=== PATIENT | female | born 1935 | race Two or more races ===

== ENCOUNTER 2022-03-13 11:22 | Emergency (ER) | payer MEDICARE ==
[~2022-03-13] VITALS: Ht 160 cm; Wt 45.0 kg
[2022-03-13 11:26] VITALS: BP 158/79
[2022-03-13] MEDS ORDERED: DOCU-286 MT (15:15)
[2022-03-13] MEDS ORDERED: HYDR30CR80 TP (15:15)
== END 2022-03-13 15:40 | disposition home or self-care (01) ==
LOC: ER 11:22
DX: K64.4 Residual hemorrhoidal skin tags (principal)
CPT/HCPCS: 99283

== ENCOUNTER 2022-06-08 20:29 | Inpatient (IN) | payer MEDICARE, MEDICAID ==
[~2022-06-08] VITALS: Ht 160 cm; Wt 34.7 kg
[~2022-06-08 20:29] MED LIST: DOCU-286 MT; HYDR30CR80 TP
[2022-06-09] VITALS (16 sets, daily range): BP systolic 87–132; BP diastolic 51–98
[2022-06-09] MEDS ORDERED: ONDANSETRON HCL 4MG/2ML INJ IV STA (00:36)
[2022-06-09] MEDS ORDERED: MORPHINE SULFATE 4 MG/ML CPJ (NOT FOR IM USE) IV ONE (01:30)
[2022-06-09 02:13] LABS: HEMATOCRIT. 36.2 % (36.0-48.0); HEMOGLOBIN. 12.2 g/dL (12.0-16.0); MEAN CORPUSCULAR HEMOGLOBIN 31.5 pg (28.0-32.0); MEAN CORPUSCULAR VOLUME 93.2 fL (81.0-99.0); MEAN PLATELET VOLUME 6.7 fl (7.4-10.4); PLATELET 189 x1000/uL (130-400); RED BLOOD CELL COUNT 3.88 mill/uL (4.2-5.4); RED CELL DISTRIBUTION WIDTH 14.1 % (11.6-14.6)
[2022-06-09 02:17] LABS: PLATELET ESTIMATE NORMAL
[2022-06-09 02:27] LABS: PROTHROMBIN TIME 10.6 sec (9.6-11.0)
[2022-06-09 03:06] LABS: CHLORIDE 98 mEq/L (98-107)
[2022-06-09] MEDS ORDERED: GUAIFENESIN 200MG/10ML SUGAR FREE UDC PO PRN (03:30)
[2022-06-09] MEDS ORDERED: DOCUSATE SODIUM 100MG CAPSULE PO PRN (03:30)
[2022-06-09] MEDS ORDERED: MORPHINE SULFATE 2 MG/ML CPJ (NOT FOR IM USE) IV PRN (03:30)
[2022-06-09] MEDS ORDERED: IPRATROPIUM/ALBUTEROL 0.5-3(2.5)MG/3ML NEB HHN PRN (03:30)
[2022-06-09] MEDS ORDERED: ONDANSETRON HCL 4MG/2ML INJ IV PRN ×2 (03:30→07:30)
[2022-06-09] MEDS ORDERED: SODIUM CHLORIDE 0.9% 1,000 ML IV SCH (03:30)
[2022-06-09] MEDS ORDERED: ACETAMINOPHEN 325MG TABLET PO PRN (03:30)
[2022-06-09] MEDS ORDERED: CLONIDINE 0.1MG TABLET PO PRN (03:30)
[2022-06-09] MEDS ORDERED: DIATR MEGLU/DIATRIZOATE SOLN 120ML ONE (04:06)
[2022-06-09 05:44] LABS: VITAMIN B12 SERUM 415 pg/mL (211-911)
[2022-06-09] MEDS ORDERED: BUPIVACAINE HCL/PF 0.5% (5MG/ML) 30ML ONE (06:56)
[2022-06-09] MEDS ORDERED: SKIN ADHESIVE 0.7 GM EA TOP ONE (06:56)
[2022-06-09] MEDS ORDERED: ETOMIDATE 2MG/ML 10ML VIAL IV ONE (07:09)
[2022-06-09] MEDS ORDERED: DEXAMETHASONE 4MG/ML 1ML VIAL ONE (07:15)
[2022-06-09] MEDS ORDERED: LIDOCAINE HCL 1% 10 MG/ML 10ML VIAL ONE (07:15)
[2022-06-09] MEDS ORDERED: PHENYLEPHRINE HCL 10 MG/ML 1ML (IV VIAL) IV ONE (07:15)
[2022-06-09] MEDS ORDERED: ONDANSETRON HCL 4MG/2ML INJ ONE (07:15)
[2022-06-09] MEDS ORDERED: SUCCINYLCHOLINE CHLORIDE 200MG/10ML IV ONE (07:16)
[2022-06-09] MEDS ORDERED: ROCURONIUM BROMIDE 10MG/ML VIAL 5ML IV ONE (07:16)
[2022-06-09] MEDS ORDERED: GLYCOPYRROLATE 0.2 MG/ML 2ML VIAL ONE (07:17)
[2022-06-09] MEDS ORDERED: DEXT 5%/0.45% NACL KCL 20MEQ/L 1,000 ML IV SCH (08:00)
[2022-06-09] MEDS ORDERED: FENTANYL CITRATE/PF 50MCG/ML 2ML VIAL ONE (08:05)
[2022-06-09] MEDS ORDERED: ALBUMIN HUMAN 12.5GM/50ML (25%) IV ONE (08:36)
[2022-06-09] MEDS: PANTOPRAZOLE SODIUM 40 MG/VIAL IV SCH (09:00)
[2022-06-09 10:44] LABS: BG BASE EXCESS -8.9 mmol/L (-2.0-2.0); BG CARBOXYHEMOGLOBIN 0.6 % (0.5-1.5); BG FRACTION INSPIRED OXYGEN 50; BG HCO3 ACT 16.2 mmol/L (22.0-26.0); BG METHEMOGLOBIN 0.3 % (0.0-1.5); BG OXYHEMOGLOBIN 95.1 % (94.0-97.0); BG PCO2 32.6 mmHg (35.0-45.0); BG PH 7.315 (7.350-7.450); BG PO2 88.5 mmHg (75.0-100.0); BG SAMPLE SITE RIGHT BRACHIAL; BG TOTAL HEMOGLOBIN 12.5 g/dL (12.0-18.0); BG VENT MODE VENT - AC
[2022-06-09] MEDS ORDERED: SODIUM BICARBONATE 8.4% 1 MEQ/ML 50ML SYR IV NR ×2 (11:15→12:30)
[2022-06-09] MEDS ORDERED: FENTANYL CITRATE/PF 50MCG/ML 2ML VIAL IV PRN (11:45)
[2022-06-09] MEDS ORDERED: HYDROMORPHONE HCL/PF 2MG/ML CPJ IV PRN (11:45)
[2022-06-09 12:08] LABS: BG BASE EXCESS -5.1 mmol/L (-2.0-2.0); BG CARBOXYHEMOGLOBIN 0.9 % (0.5-1.5); BG DEOXYHEMOGLOBIN 1.2 % (0.0-5.0); BG FRACTION INSPIRED OXYGEN 70; BG HCO3 ACT 18.8 mmol/L (22.0-26.0); BG OXYGEN SATURATION 98.8 % (92.0-98.5); BG OXYHEMOGLOBIN 97.9 % (94.0-97.0); BG PCO2 31.3 mmHg (35.0-45.0); BG PH 7.396 (7.350-7.450); BG PO2 160.2 mmHg (75.0-100.0); BG SAMPLE SITE RIGHT BRACHIAL; BG TOTAL HEMOGLOBIN 11.7 g/dL (12.0-18.0); BG VENT MODE VENT - AC
[2022-06-09] MEDS ORDERED: DEXT 5%/0.9% NACL 500 ML IV SCH (14:15)
[2022-06-09 14:26] LABS: FOLIC ACID (FOLATE) SERUM > 20.00 ng/mL (>5.38)
[2022-06-09] MEDS ORDERED: PIPERACILLIN/TAZOBACTAM 3.375G in DEXT 5% WATER 50ML IV SCH (14:30)
[2022-06-09] MEDS ORDERED: PROPOFOL 10MG/ML 100ML 100 ML IV PRN (14:30)
[2022-06-09] MEDS: DEXT 5%/0.9% NACL 1,000 ML IV SCH ×2 (14:30→16:50)
[2022-06-09] MEDS ORDERED: DEXTROSE 50% WATER 50ML SYRINGE IV PRN (14:30)
[2022-06-09] MEDS ORDERED: FENTANYL 2500MCG/250ML PMX 250 ML IV PRN (14:30)
[2022-06-09 14:38] LABS: BG BASE EXCESS -0.5 mmol/L (-2.0-2.0); BG CARBOXYHEMOGLOBIN 0.8 % (0.5-1.5); BG DEOXYHEMOGLOBIN 0.8 % (0.0-5.0); BG FRACTION INSPIRED OXYGEN 60; BG HCO3 ACT 22.5 mmol/L (22.0-26.0); BG METHEMOGLOBIN 0.1 % (0.0-1.5); BG OXYGEN SATURATION 99.2 % (92.0-98.5); BG OXYHEMOGLOBIN 98.3 % (94.0-97.0); BG PCO2 31.9 mmHg (35.0-45.0); BG PH 7.467 (7.350-7.450); BG PO2 212.7 mmHg (75.0-100.0); BG SAMPLE SITE RIGHT BRACHIAL; BG TOTAL HEMOGLOBIN 11.7 g/dL (12.0-18.0); BG VENT MODE VENT - AC
[2022-06-09] MEDS: MORPHINE SULFATE 4 MG/ML CPJ (NOT FOR IM USE) IV PRN ×2 (16:15→19:46)
[2022-06-09] MEDS: BLOOD SUGAR DIAGNOSTIC STRIP TEST SCH ×2 (16:45→21:00)
[2022-06-09] MEDS: INSULIN LISPRO 100 UNITS/ML SUBCUT SCH ×2 (16:48→21:00)
[2022-06-09] MEDS ORDERED: PIPERACILLIN/TAZ 3.375G PREMIX 50 ML IV SCH (22:00)
[2022-06-09] MEDS: PIPERACILLIN/TAZOBACTAM 3.375G in DEXT 5% WATER 50ML IV SCH (23:48)
[2022-06-10] VITALS (58 sets, daily range): BP systolic 99–149; BP diastolic 54–105
[2022-06-10 05:02] LABS: HEMATOCRIT. 31.6 % (36.0-48.0); HEMOGLOBIN. 10.6 g/dL (12.0-16.0); MEAN CORPUSCULAR HEMOGLOBIN 31.4 pg (28.0-32.0); MEAN CORPUSCULAR VOLUME 93.9 fL (81.0-99.0); MEAN PLATELET VOLUME 7.5 fl (7.4-10.4); PLATELET 160 x1000/uL (130-400); RED BLOOD CELL COUNT 3.36 mill/uL (4.2-5.4); RED CELL DISTRIBUTION WIDTH 14.3 % (11.6-14.6)
[2022-06-10 05:10] LABS: CHLORIDE 99 mEq/L (98-107)
[2022-06-10 05:36] LABS: HDL CHOLESTEROL 83 mg/dL (40-59); LDL CHOLESTEROL 26 mg/dL (5-100); T4 FREE 1.24 ng/dL (0.76-1.46)
[2022-06-10] MEDS: PIPERACILLIN/TAZOBACTAM 3.375G in DEXT 5% WATER 50ML IV SCH ×3 (05:59→22:25)
[2022-06-10] MEDS: INSULIN LISPRO 100 UNITS/ML SUBCUT SCH ×4 (06:15→21:00)
[2022-06-10] MEDS: BLOOD SUGAR DIAGNOSTIC STRIP TEST SCH ×4 (06:15→21:50)
[2022-06-10 08:32] LABS: BG BASE EXCESS -1.9 mmol/L (-2.0-2.0); BG CARBOXYHEMOGLOBIN 0.3 % (0.5-1.5); BG DEOXYHEMOGLOBIN 1.1 % (0.0-5.0); BG HCO3 ACT 20.9 mmol/L (22.0-26.0); BG METHEMOGLOBIN 0.3 % (0.0-1.5); BG OXYGEN SATURATION 98.9 % (92.0-98.5); BG OXYHEMOGLOBIN 98.3 % (94.0-97.0); BG PCO2 29.3 mmHg (35.0-45.0); BG PH 7.472 (7.350-7.450); BG PO2 163.7 mmHg (75.0-100.0); BG SAMPLE SITE RIGHT BRACHIAL; BG TOTAL HEMOGLOBIN 10.7 g/dL (12.0-18.0); BG VENT MODE VENT - AC
[2022-06-10] MEDS: PANTOPRAZOLE SODIUM 40 MG/VIAL IV SCH (08:51)
[2022-06-10 10:39] LABS: PLATELET ESTIMATE NORMAL
[2022-06-10] MEDS: MORPHINE SULFATE 2 MG/ML CPJ (NOT FOR IM USE) IV PRN (10:42)
[2022-06-10] MEDS ORDERED: NALOXONE HCL 0.4MG/ML VIAL IV PRN (10:45)
[2022-06-10] MEDS: MORPHINE SULFATE 4 MG/ML CPJ (NOT FOR IM USE) IV PRN ×2 (11:58→23:07)
[2022-06-10 12:47] LABS: BG BASE EXCESS 0.6 mmol/L (-2.0-2.0); BG CARBOXYHEMOGLOBIN 0.3 % (0.5-1.5); BG DEOXYHEMOGLOBIN 1.7 % (0.0-5.0); BG FRACTION INSPIRED OXYGEN 30; BG HCO3 ACT 24.7 mmol/L (22.0-26.0); BG OXYGEN SATURATION 98.3 % (92.0-98.5); BG PCO2 37.7 mmHg (35.0-45.0); BG PH 7.435 (7.350-7.450); BG PO2 131.6 mmHg (75.0-100.0); BG SAMPLE SITE RIGHT BRACHIAL; BG TOTAL HEMOGLOBIN 10.5 g/dL (12.0-18.0); BG VENT MODE VENT - CPAP
[2022-06-10] MEDS: DEXT 5%/0.9% NACL 1,000 ML IV SCH (16:17)
[2022-06-11] VITALS (48 sets, daily range): BP systolic 131–189; BP diastolic 54–124
[2022-06-11 05:13] LABS: HEMATOCRIT. 29.5 % (36.0-48.0); MEAN CORPUSCULAR HEMOGLOBIN 31.4 pg (28.0-32.0); MEAN CORPUSCULAR VOLUME 93.1 fL (81.0-99.0); MEAN PLATELET VOLUME 7.6 fl (7.4-10.4); PLATELET 143 x1000/uL (130-400); RED BLOOD CELL COUNT 3.17 mill/uL (4.2-5.4); RED CELL DISTRIBUTION WIDTH 14.2 % (11.6-14.6)
[2022-06-11 05:32] LABS: CHLORIDE 104 mEq/L (98-107)
[2022-06-11] MEDS: PIPERACILLIN/TAZOBACTAM 3.375G in DEXT 5% WATER 50ML IV SCH ×3 (05:35→22:47)
[2022-06-11] MEDS: BLOOD SUGAR DIAGNOSTIC STRIP TEST SCH ×4 (06:28→21:55)
[2022-06-11] MEDS: INSULIN LISPRO 100 UNITS/ML SUBCUT SCH ×4 (06:28→21:00)
[2022-06-11] MEDS ORDERED: AMLODIPINE 2.5MG TABLET PO SCH (09:00)
[2022-06-11 09:51] LABS: PLATELET ESTIMATE NORMAL
[2022-06-11] MEDS: PANTOPRAZOLE SODIUM 40 MG/VIAL IV SCH (10:17)
[2022-06-11] MEDS: MORPHINE SULFATE 2 MG/ML CPJ (NOT FOR IM USE) IV PRN (15:55)
[2022-06-11] MEDS ORDERED: CLONIDINE 0.1MG TABLET PO PRN (16:00)
[2022-06-11] MEDS: DEXT 5%/0.9% NACL 1,000 ML IV SCH (19:50)
[2022-06-12] VITALS (29 sets, daily range): BP systolic 113–171; BP diastolic 52–103
[2022-06-12] MEDS: INSULIN LISPRO 100 UNITS/ML SUBCUT SCH ×4 (06:29→21:00)
[2022-06-12] MEDS: BLOOD SUGAR DIAGNOSTIC STRIP TEST SCH ×4 (06:29→21:19)
[2022-06-12] MEDS: PIPERACILLIN/TAZOBACTAM 3.375G in DEXT 5% WATER 50ML IV SCH ×3 (06:35→21:40)
[2022-06-12] MEDS: PANTOPRAZOLE SODIUM 40 MG/VIAL IV SCH (08:29)
[2022-06-12] MEDS: AMLODIPINE 10MG TABLET PO SCH (08:29)
[2022-06-12] MEDS: DEXT 5%/0.9% NACL 1,000 ML IV SCH ×2 (08:29→21:41)
[2022-06-12] MEDS: METOPROLOL TARTRATE 25MG TABLET PO SCH ×2 (09:10→21:40)
[2022-06-12] MEDS: MORPHINE SULFATE 2 MG/ML CPJ (NOT FOR IM USE) IV PRN ×2 (09:11→14:38)
[2022-06-12] MEDS ORDERED: ALBUTEROL (0.083%) 2.5MG/3ML NEB HHN PRN (11:15)
[2022-06-12] MEDS ORDERED: IPRATROPIUM BROMIDE (0.02%) 0.5MG/2.5ML NEB HHN PRN (11:15)
[2022-06-13] VITALS: BP 123/66
[2022-06-13 04:00] VITALS: BP 125/62
[2022-06-13] MEDS: BLOOD SUGAR DIAGNOSTIC STRIP TEST SCH ×4 (06:14→21:38)
[2022-06-13] MEDS: PIPERACILLIN/TAZOBACTAM 3.375G in DEXT 5% WATER 50ML IV SCH ×3 (06:16→21:56)
[2022-06-13 08:00] VITALS: BP 126/75
[2022-06-13] MEDS: INSULIN LISPRO 100 UNITS/ML SUBCUT SCH ×4 (08:10→21:00)
[2022-06-13] MEDS: METOPROLOL TARTRATE 25MG TABLET PO SCH ×2 (08:31→21:57)
[2022-06-13] MEDS: PANTOPRAZOLE SODIUM 40 MG/VIAL IV SCH (08:31)
[2022-06-13] MEDS: AMLODIPINE 10MG TABLET PO SCH (08:31)
[2022-06-13] MEDS: ACETAMINOPHEN 325MG TABLET PO PRN (08:33)
[2022-06-13 08:59] LABS: HEMATOCRIT 28.5 % (36.0-48.0); HEMOGLOBIN 9.5 g/dL (12.0-16.0); MEAN CORPUSCULAR HEMOGLOBIN 31.3 pg (28.0-32.0); MEAN CORPUSCULAR VOLUME 93.7 fL (81.0-99.0); PLATELET 158 x1000/uL (130-400); RED BLOOD CELL COUNT 3.04 mill/uL (4.2-5.4); RED CELL DISTRIBUTION WIDTH 13.8 % (11.6-14.6)
[2022-06-13 09:10] LABS: CHLORIDE 108 mEq/L (98-107)
[2022-06-13] MEDS ORDERED: POTASSIUM CHLORIDE INJ 40 MEQ in DEXT 5% WATER 250 ML IV ONE (11:30)
[2022-06-13 12:00] VITALS: BP_SYST 122; BP_DIAS 63; BP_DIAS 65
[2022-06-13] MEDS: MORPHINE SULFATE 2 MG/ML CPJ (NOT FOR IM USE) IV PRN ×2 (12:15→17:39)
[2022-06-13] MEDS: SODIUM CHLORIDE 0.9% 1,000 ML IV SCH (12:29)
[2022-06-13] MEDS: KCL 20MEQ/100ML X 2 FOR TOTAL KCL 40MEQ/200ML IV SCH ×2 (15:23→15:52)
[2022-06-13 16:00] VITALS: BP_SYST 126; BP_DIAS 71; BP_DIAS 72
[2022-06-13 20:00] VITALS: BP 135/66
[2022-06-14] VITALS: BP 140/71
[2022-06-14 04:00] VITALS: BP 144/76
[2022-06-14] MEDS: SODIUM CHLORIDE 0.9% 1,000 ML IV SCH (05:23)
[2022-06-14] MEDS: MORPHINE SULFATE 2 MG/ML CPJ (NOT FOR IM USE) IV PRN (05:24)
[2022-06-14] MEDS: PIPERACILLIN/TAZOBACTAM 3.375G in DEXT 5% WATER 50ML IV SCH ×3 (05:24→20:59)
[2022-06-14 07:23] LABS: HEMATOCRIT. 29.3 % (36.0-48.0); HEMOGLOBIN. 9.9 g/dL (12.0-16.0); MEAN CORPUSCULAR HEMOGLOBIN 31.9 pg (28.0-32.0); MEAN CORPUSCULAR VOLUME 94.1 fL (81.0-99.0); MEAN PLATELET VOLUME 7.6 fl (7.4-10.4); PLATELET 172 x1000/uL (130-400); RED BLOOD CELL COUNT 3.12 mill/uL (4.2-5.4)
[2022-06-14 07:33] LABS: CHLORIDE 104 mEq/L (98-107)
[2022-06-14] MEDS: BLOOD SUGAR DIAGNOSTIC STRIP TEST SCH ×4 (07:40→20:59)
[2022-06-14 08:01] VITALS: BP 128/65
[2022-06-14] MEDS: INSULIN LISPRO 100 UNITS/ML SUBCUT SCH ×4 (08:10→20:59)
[2022-06-14] MEDS: AMLODIPINE 10MG TABLET PO SCH (08:12)
[2022-06-14] MEDS: METOPROLOL TARTRATE 25MG TABLET PO SCH ×2 (08:12→20:58)
[2022-06-14] MEDS: PANTOPRAZOLE SODIUM 40 MG/VIAL IV SCH (08:12)
[2022-06-14 09:46] LABS: PLATELET ESTIMATE NORMAL
[2022-06-14] MEDS: DEXT 5%/0.9% NACL 1,000 ML IV SCH ×2 (10:24→22:23)
[2022-06-14] MEDS: ACETAMINOPHEN 325MG TABLET PO PRN ×2 (10:28→18:51)
[2022-06-14] MEDS ORDERED: POTASSIUM CHLORIDE INJ 40 MEQ in DEXT 5% WATER 500 ML IV NR (11:00)
[2022-06-14 11:57] VITALS: BP 108/55
[2022-06-14 15:31] VITALS: BP 122/61
[2022-06-14 20:00] VITALS: BP 130/86
[2022-06-15] VITALS: BP 123/72
[2022-06-15 04:00] VITALS: BP 124/63
[2022-06-15 07:22] LABS: HEMOGLOBIN. 9.5 g/dL (12.0-16.0); MEAN CORPUSCULAR HEMOGLOBIN 31.4 pg (28.0-32.0); MEAN CORPUSCULAR VOLUME 92.8 fL (81.0-99.0); MEAN PLATELET VOLUME 7.6 fl (7.4-10.4); PLATELET 191 x1000/uL (130-400); RED BLOOD CELL COUNT 3.01 mill/uL (4.2-5.4); RED CELL DISTRIBUTION WIDTH 13.9 % (11.6-14.6)
[2022-06-15] MEDS: INSULIN LISPRO 100 UNITS/ML SUBCUT SCH ×4 (07:27→21:00)
[2022-06-15] MEDS: BLOOD SUGAR DIAGNOSTIC STRIP TEST SCH ×4 (07:27→21:00)
[2022-06-15 07:55] VITALS: BP 127/61
[2022-06-15 08:07] LABS: CHLORIDE 108 mEq/L (98-107)
[2022-06-15] MEDS: METOPROLOL TARTRATE 25MG TABLET PO SCH ×2 (09:06→20:55)
[2022-06-15] MEDS: AMLODIPINE 10MG TABLET PO SCH (09:06)
[2022-06-15] MEDS: PANTOPRAZOLE SODIUM 40 MG/VIAL IV SCH (09:06)
[2022-06-15] MEDS: DEXT 5%/0.9% NACL 1,000 ML IV SCH (12:07)
[2022-06-15 12:43] VITALS: BP 112/65
[2022-06-15] MEDS: ACETAMINOPHEN 325MG TABLET PO PRN (16:03)
[2022-06-15 16:28] VITALS: BP 127/56
[2022-06-15 20:13] VITALS: BP 122/63
[2022-06-15 22:40] LABS: PLATELET ESTIMATE NORMAL
[2022-06-16 00:23] VITALS: BP 115/65
[2022-06-16] MEDS: DEXT 5%/0.9% NACL 1,000 ML IV SCH ×2 (01:21→15:05)
[2022-06-16] MEDS: ACETAMINOPHEN 325MG TABLET PO PRN (01:38)
[2022-06-16 04:00] VITALS: BP 128/51
[2022-06-16] MEDS: BLOOD SUGAR DIAGNOSTIC STRIP TEST SCH ×2 (07:23→12:45)
[2022-06-16] MEDS: INSULIN LISPRO 100 UNITS/ML SUBCUT SCH ×2 (07:23→12:46)
[2022-06-16] MEDS ORDERED: HYDROCODONE/ACETAMINOPHEN 5/325MG TABLET PO PRN (07:30)
[2022-06-16] MEDS ORDERED: NALOXONE HCL 0.4MG/ML VIAL IV PRN (07:45)
[2022-06-16 08:00] VITALS: BP 121/58
[2022-06-16] MEDS: PANTOPRAZOLE SODIUM 40 MG/VIAL IV SCH (09:29)
[2022-06-16] MEDS: AMLODIPINE 10MG TABLET PO SCH (09:30)
[2022-06-16] MEDS: METOPROLOL TARTRATE 25MG TABLET PO SCH (09:31)
[2022-06-16 12:00] VITALS: BP 125/62
[2022-06-16 14:09] VITALS: BP 132/62
[2022-06-16 16:00] VITALS: BP 132/62
== END 2022-06-16 17:45 | DRG 330 ==
LOC: ER 20:29 → EDBEDREQ 06-09 02:27 → EDBEDREQTM 06-09 02:27 → MICUSO 06-09 15:18 → 7WST 06-12 10:59
PROVIDERS: ADMIT Internal Medicine; ATTEND Internal Medicine
PROC: 0DTF0ZZ Resection of Right Large Intestine, Open Approach (ICD-10-PCS; principal; 2022-06-09)
PROC: 5A1935Z Respiratory Ventilation, Less than 24 Consecutive Hours (ICD-10-PCS; 2022-06-09)
PROC: 0BH17EZ Insertion of Endotracheal Airway into Trachea, Via Natural or Artificial Opening (ICD-10-PCS; 2022-06-09)
DX: K56.2 Volvulus (principal); E87.1 Hypo-osmolality and hyponatremia; E87.20 Acidosis, unspecified; J44.9 Chronic obstructive pulmonary disease, unspecified; I10 Essential (primary) hypertension; K21.9 Gastro-esophageal reflux disease without esophagitis; M19.90 Unspecified osteoarthritis, unspecified site; E78.5 Hyperlipidemia, unspecified; R73.9 Hyperglycemia, unspecified; F20.9 Schizophrenia, unspecified; E87.6 Hypokalemia; F32.A Depression, unspecified; E86.1 Hypovolemia; E86.0 Dehydration; K66.8 Other specified disorders of peritoneum; K57.90 Diverticulosis of intestine, part unspecified, without perforation or abscess without bleeding; Z20.822 Contact with and (suspected) exposure to COVID-19; Z90.3 Acquired absence of stomach [part of]; Z79.899 Other long term (current) drug therapy; Z90.710 Acquired absence of both cervix and uterus
CPT/HCPCS: 31500; 36415; 36600; 71045; 74018; 74176; 80048; 80053; 80061; 82375; 82607; 82746; 82805; 82962; 83036; 83880; 83930; 84439; 84443; 84484; 85025; 85027; 87070; 87426; 88307; 94002; 94003; 97162; 97166; 97530; 99285; A6261; C9113; J0330; J1100; J1170; J1815; J2270; J2370; J2405; J2543; J3010; J3480; J3490; J7030; J7042; J7060; P9047; Q9963

== ENCOUNTER 2022-06-28 11:40 | Inpatient (IN) | payer MEDICARE, MEDICAID ==
[~2022-06-28] VITALS: Ht 160 cm; Wt 43.6 kg
[2022-06-28] MEDS ORDERED: MORPHINE SULFATE 2 MG/ML CPJ (NOT FOR IM USE) IV ONE (13:30)
[2022-06-28] MEDS ORDERED: SODIUM CHLORIDE 0.9% 1,000 ML IV ONE (13:30)
[2022-06-28] MEDS ORDERED: ONDANSETRON HCL 4MG/2ML INJ IV ONE (13:30)
[2022-06-28 15:34] LABS: BASOPHILS % 0.2 % (0.0-2.0); EOSINOPHILS % 0.2 % (0.0-5.0); HEMATOCRIT. 36.3 % (36.0-48.0); LYMPHOCYTES % 10.9 % (20.0-50.0); MEAN CORPUSCULAR HEMOGLOBIN 30.5 pg (28.0-32.0); MEAN CORPUSCULAR VOLUME 92.5 fL (81.0-99.0); MONOCYTES % 11.5 % (2.0-8.0); NEUTROPHILS % 77.2 % (40.0-76.0); PLATELET 309 x1000/uL (130-400); RED BLOOD CELL COUNT 3.92 mill/uL (4.2-5.4); RED CELL DISTRIBUTION WIDTH 14.4 % (11.6-14.6)
[2022-06-28 15:42] LABS: CHLORIDE 101 mEq/L (98-107)
[2022-06-28 15:51] LABS: ETHANOL BLOOD < 10 mg/dL
[2022-06-28] MEDS ORDERED: ONDANSETRON HCL 4MG/2ML INJ IV NR (16:00)
[2022-06-28] MEDS ORDERED: MORPHINE SULFATE 2 MG/ML CPJ (NOT FOR IM USE) IV NR (16:00)
[2022-06-28] MEDS ORDERED: CLONIDINE 0.1MG TABLET PO PRN (20:00)
[2022-06-28] MEDS ORDERED: ONDANSETRON HCL 4MG/2ML INJ IV PRN (20:00)
[2022-06-28] MEDS ORDERED: IPRATROPIUM/ALBUTEROL 0.5-3(2.5)MG/3ML NEB NEB PRN (20:00)
[2022-06-28] MEDS ORDERED: ACETAMINOPHEN 650MG SUPP PR PRN ×2 (20:00)
[2022-06-28] MEDS ORDERED: MORPHINE SULFATE 2 MG/ML CPJ (NOT FOR IM USE) IV PRN (20:00)
[2022-06-28] MEDS ORDERED: DEXTROSE 50% WATER 50ML SYRINGE IV PRN (20:15)
[2022-06-28] MEDS ORDERED: NALOXONE HCL 0.4MG/ML VIAL IV PRN (20:30)
[2022-06-28] MEDS: INSULIN LISPRO 100 UNITS/ML SUBCUT SCH (21:00)
[2022-06-28] MEDS: BLOOD SUGAR DIAGNOSTIC STRIP TEST SCH (21:22)
[2022-06-28] MEDS: DEXT 5%/0.9% NACL 1,000 ML IV SCH (21:42)
[2022-06-28 23:03] LABS: PROTHROMBIN TIME 10.8 sec (9.6-11.0)
[2022-06-28 23:08] LABS: PHOSPHORUS 4.8 mg/dL (2.5-4.9)
[2022-06-29] VITALS: BP 100/59
[2022-06-29] MEDS ORDERED: ENOXAPARIN 40MG/0.4ML SYR SUBCUT SCH (02:00)
[2022-06-29 04:00] VITALS: BP 111/59
[2022-06-29] MEDS: DEXT 5%/0.9% NACL 1,000 ML IV SCH (06:03)
[2022-06-29 07:08] LABS: BASOPHILS % 0.3 % (0.0-2.0); EOSINOPHILS % 1.5 % (0.0-5.0); HEMATOCRIT. 30.8 % (36.0-48.0); HEMOGLOBIN. 10.3 g/dL (12.0-16.0); LYMPHOCYTES % 23.8 % (20.0-50.0); MEAN CORPUSCULAR VOLUME 92.9 fL (81.0-99.0); MEAN PLATELET VOLUME 7.6 fl (7.4-10.4); MONOCYTES % 13.7 % (2.0-8.0); NEUTROPHILS % 60.7 % (40.0-76.0); PLATELET 227 x1000/uL (130-400); RED BLOOD CELL COUNT 3.32 mill/uL (4.2-5.4); RED CELL DISTRIBUTION WIDTH 14.1 % (11.6-14.6)
[2022-06-29] MEDS: BLOOD SUGAR DIAGNOSTIC STRIP TEST SCH ×4 (07:20→20:29)
[2022-06-29 07:46] LABS: CHLORIDE 106 mEq/L (98-107)
[2022-06-29] MEDS: INSULIN LISPRO 100 UNITS/ML SUBCUT SCH ×4 (07:50→20:30)
[2022-06-29 08:00] VITALS: BP 115/58
[2022-06-29 08:02] LABS: T4 FREE 1.18 ng/dL (0.76-1.46)
[2022-06-29] MEDS: PANTOPRAZOLE SODIUM 40 MG/VIAL IV SCH (08:16)
[2022-06-29] MEDS ORDERED: IOHEXOL-300 100 ML BOTTLE ONE (09:38)
[2022-06-29] MEDS ORDERED: LIDOCAINE HCL 1% 10 MG/ML 10ML VIAL ONE (13:29)
[2022-06-29 16:20] VITALS: BP 114/60
[2022-06-29 16:34] LABS: CREATINE KINASE MB FRACTION 2.2 ng/mL (0.5-3.6)
[2022-06-29 16:51] LABS: T4 FREE 1.18 ng/dL (0.76-1.46)
[2022-06-29] MEDS ORDERED: GLUCAGON,HUMAN RECOMBINANT 1MG/VIAL IM PRN (19:15)
[2022-06-29] MEDS ORDERED: IPRATROPIUM BROMIDE (0.02%) 0.5MG/2.5ML NEB HHN PRN (19:45)
[2022-06-29] MEDS ORDERED: ALBUTEROL (0.083%) 2.5MG/3ML NEB HHN PRN (19:45)
[2022-06-29 20:00] VITALS: BP 133/76
[2022-06-29 23:28] LABS: CREATINE KINASE MB FRACTION 1.6 ng/mL (0.5-3.6)
[2022-06-30] VITALS: BP 128/74
[2022-06-30 04:00] VITALS: BP 115/65
[2022-06-30] MEDS: ENOXAPARIN 40MG/0.4ML SYR SUBCUT SCH ×2 (06:03→07:08)
[2022-06-30] MEDS: INSULIN LISPRO 100 UNITS/ML SUBCUT SCH ×4 (06:03→20:22)
[2022-06-30] MEDS: BLOOD SUGAR DIAGNOSTIC STRIP TEST SCH ×4 (06:03→20:22)
[2022-06-30 07:20] LABS: HEMATOCRIT 34.2 % (36.0-48.0); HEMOGLOBIN 11.2 g/dL (12.0-16.0); MEAN CORPUSCULAR HEMOGLOBIN 30.9 pg (28.0-32.0); PLATELET 237 x1000/uL (130-400); RED BLOOD CELL COUNT 3.64 mill/uL (4.2-5.4); RED CELL DISTRIBUTION WIDTH 14.2 % (11.6-14.6)
[2022-06-30 07:31] LABS: CHLORIDE 109 mEq/L (98-107)
[2022-06-30 07:42] LABS: CREATINE KINASE 25 IU/L (26-192); CREATINE KINASE MB FRACTION 1.2 ng/mL (0.5-3.6)
[2022-06-30 08:00] VITALS: BP 108/61
[2022-06-30] MEDS: PANTOPRAZOLE SODIUM 40 MG/VIAL IV SCH (08:52)
[2022-06-30 11:55] VITALS: BP 110/69
[2022-06-30] MEDS ORDERED: LIDOCAINE HCL 1% 10 MG/ML 10ML VIAL ONE (12:16)
[2022-06-30 16:00] VITALS: BP 121/62
[2022-06-30] MEDS: DEXT 5%/0.9% NACL 1,000 ML IV SCH (16:53)
[2022-06-30 20:38] VITALS: BP 128/66
[2022-07-01] VITALS (7 sets, daily range): BP systolic 108–135; BP diastolic 50–79
[2022-07-01] MEDS: ENOXAPARIN 40MG/0.4ML SYR SUBCUT SCH (05:33)
[2022-07-01 06:27] LABS: HEMATOCRIT 32.2 % (36.0-48.0); HEMOGLOBIN 10.4 g/dL (12.0-16.0); MEAN CORPUSCULAR HEMOGLOBIN 30.7 pg (28.0-32.0); PLATELET 206 x1000/uL (130-400); RED BLOOD CELL COUNT 3.39 mill/uL (4.2-5.4); RED CELL DISTRIBUTION WIDTH 14.2 % (11.6-14.6)
[2022-07-01] MEDS: BLOOD SUGAR DIAGNOSTIC STRIP TEST SCH ×4 (06:42→21:37)
[2022-07-01] MEDS: INSULIN LISPRO 100 UNITS/ML SUBCUT SCH ×4 (06:42→21:00)
[2022-07-01 06:46] LABS: CHLORIDE 110 mEq/L (98-107)
[2022-07-01 06:55] LABS: PHOSPHORUS 2.9 mg/dL (2.5-4.9)
[2022-07-01] MEDS: FAMOTIDINE 20MG/2ML VIAL IV SCH (09:49)
[2022-07-01] MEDS: DEXT 5%/0.9% NACL 1,000 ML IV SCH (13:19)
[2022-07-02] VITALS: BP 120/60
[2022-07-02 04:00] VITALS: BP 111/47
[2022-07-02] MEDS: ENOXAPARIN 40MG/0.4ML SYR SUBCUT SCH (05:12)
[2022-07-02 07:40] LABS: HEMATOCRIT 31.6 % (36.0-48.0); HEMOGLOBIN 10.1 g/dL (12.0-16.0); MEAN CORPUSCULAR HEMOGLOBIN 30.4 pg (28.0-32.0); MEAN CORPUSCULAR VOLUME 94.6 fL (81.0-99.0); PLATELET 187 x1000/uL (130-400); RED BLOOD CELL COUNT 3.34 mill/uL (4.2-5.4); RED CELL DISTRIBUTION WIDTH 14.1 % (11.6-14.6)
[2022-07-02] MEDS: INSULIN LISPRO 100 UNITS/ML SUBCUT SCH ×2 (07:59→12:34)
[2022-07-02] MEDS: BLOOD SUGAR DIAGNOSTIC STRIP TEST SCH ×2 (07:59→12:33)
[2022-07-02 08:03] LABS: CHLORIDE 114 mEq/L (98-107)
[2022-07-02 08:09] LABS: PHOSPHORUS 3.1 mg/dL (2.5-4.9)
[2022-07-02] MEDS: FAMOTIDINE 20MG/2ML VIAL IV SCH (08:22)
[2022-07-02] MEDS: DEXT 5%/0.9% NACL 1,000 ML IV SCH (08:28)
[2022-07-02 12:00] VITALS: BP 110/57
[2022-07-02 15:03] VITALS: BP 110/57
[2022-07-02 16:00] VITALS: BP 112/58
[2022-07-02] MEDS ORDERED: ENOX40DI8 SUBCUT (16:05)
== END 2022-07-02 16:20 | DRG 388 ==
LOC: ER 11:40 → EDBEDREQTM 18:19 → EDBEDREQ 18:19 → EDBEDREQSVC 18:19 → 6EST 18:22 → 7WST 06-29 12:15
PROVIDERS: ADMIT Internal Medicine; ATTEND Internal Medicine
PROC: 02HV33Z Insertion of Infusion Device into Superior Vena Cava, Percutaneous Approach (ICD-10-PCS; principal; 2022-06-30)
PROC: B548ZZA Ultrasonography of Superior Vena Cava, Guidance (ICD-10-PCS; 2022-06-30)
DX: K56.609 Unspecified intestinal obstruction, unspecified as to partial versus complete obstruction (principal); I26.99 Other pulmonary embolism without acute cor pulmonale; L89.153 Pressure ulcer of sacral region, stage 3; J98.11 Atelectasis; I82.403 Acute embolism and thrombosis of unspecified deep veins of lower extremity, bilateral; K56.7 Ileus, unspecified; E11.65 Type 2 diabetes mellitus with hyperglycemia; E86.0 Dehydration; J44.9 Chronic obstructive pulmonary disease, unspecified; I10 Essential (primary) hypertension; F20.9 Schizophrenia, unspecified; Z20.822 Contact with and (suspected) exposure to COVID-19; R32 Unspecified urinary incontinence; D64.9 Anemia, unspecified; K21.9 Gastro-esophageal reflux disease without esophagitis; M19.90 Unspecified osteoarthritis, unspecified site; E78.00 Pure hypercholesterolemia, unspecified; Z90.710 Acquired absence of both cervix and uterus; Z90.49 Acquired absence of other specified parts of digestive tract
CPT/HCPCS: 36415; 36573; 71045; 71275; 74018; 74176; 80048; 80053; 80061; 80307; 80320; 80329; 82550; 82553; 82962; 83036; 83605; 83615; 83735; 83880; 84100; 84439; 84443; 84484; 85025; 85027; 85379; 87426; 93005; 93306; 93970; 97162; 97165; 99291; A6261; C1725; C1893; C9113; J1650; J2270; J2405; J3490; J7030; Q9967; G0480

== ENCOUNTER 2023-09-13 20:57 | Inpatient (IN) | payer MEDICARE, MEDICAID ==
[~2023-09-13] VITALS: Ht 160 cm; Wt 44.2 kg
[2023-09-13 19:15] VITALS: BP 148/72; PULSE 82; RESP 18; TEMP 97.9
[2023-09-13 20:00] VITALS: BP 151/62; PULSE 76; RESP 18; TEMP 97.5
[2023-09-13 20:30] VITALS: BP 151/62; PULSE 76; RESP 18; TEMP 97.7
[~2023-09-13 20:57] MED LIST changes: +APIX5TAB PO; +ESOM40CA53 PO; -HYDR30CR80 TP; +LEVO50TA8 PO; +MEGE40TA5 PO; +PALI117D IM; +TOPUD PO
[2023-09-13] MEDS ORDERED: DOCUSATE SODIUM 100MG CAPSULE PO PRN (22:15)
[2023-09-13] MEDS ORDERED: ONDANSETRON HCL 4MG/2ML INJ IV PRN (22:15)
[2023-09-13] MEDS ORDERED: MAGNESIUM/ALUMINUM HYDROXIDE/SIMETHICONE 30ML UDC PO PRN (22:15)
[2023-09-13] MEDS ORDERED: CLONIDINE 0.1MG TABLET PO PRN (22:15)
[2023-09-13] MEDS: ENOXAPARIN 40MG/0.4ML SYR SUBCUT SCH (23:32)
[2023-09-13] MEDS: FAMOTIDINE 20MG TABLET PO SCH (23:32)
[2023-09-14] MEDS: INSULIN LISPRO 100 UNITS/ML SUBCUT SCH (06:21)
[2023-09-14] MEDS: BLOOD SUGAR DIAGNOSTIC STRIP TEST SCH (06:21)
[2023-09-14] MEDS: ACETAMINOPHEN 325MG TABLET PO PRN ×2 (06:25→16:42)
[2023-09-14 06:26] LABS: CARBON DIOXIDE 27 mEq/L (21-32); CHLORIDE 106 mEq/L (98-107); POTASSIUM 3.5 mEq/L (3.5-5.1); SODIUM 139 mEq/L (136-145)
[2023-09-14 06:27] LABS: CALCIUM 9.2 mg/dL (8.7-10.4)
[2023-09-14 06:31] LABS: CREATININE 0.6 mg/dL (0.6-1.0)
[2023-09-14 06:32] LABS: GLUCOSE 88 mg/dL (70-105); UREA NITROGEN BLOOD 11 mg/dL (9-23)
[2023-09-14 06:33] LABS: ALANINE AMINOTRANSFERASE 10 IU/L (10-49)
[2023-09-14 06:34] LABS: ALBUMIN 3.2 g/dL (3.2-4.8); ASPARTATE AMINOTRANSFERASE 11 IU/L (<34); BILIRUBIN TOTAL 0.4 mg/dL (0.1-1.0); PROTEIN TOTAL 5.3 g/dL (6.0-8.3)
[2023-09-14 06:56] LABS: BASOPHILS % 0.6 % (0.0-2.0); EOSINOPHILS % 0.4 % (0.0-5.0); HEMATOCRIT. 33.4 % (36.0-48.0); HEMOGLOBIN. 11.2 g/dL (12.0-16.0); LYMPHOCYTES % 28.6 % (20.0-50.0); MEAN CORPUSCULAR HEMOGLOBIN 31.6 pg (28.0-32.0); MEAN CORPUSCULAR HGB CONC 33.4 g/dL (31.0-37.0); MEAN CORPUSCULAR VOLUME 94.6 fL (81.0-99.0); MEAN PLATELET VOLUME 8.1 fl (7.4-10.4); MONOCYTES % 8.3 % (2.0-8.0); NEUTROPHILS % 62.1 % (40.0-76.0); PLATELET 199 x1000/uL (130-400); RED BLOOD CELL COUNT 3.53 mill/uL (4.2-5.4); RED CELL DISTRIBUTION WIDTH 14.7 % (11.6-14.6)
[2023-09-14 08:00] VITALS: BP 139/76; PULSE 76; RESP 19; TEMP 101.1
[2023-09-14] MEDS: MAGNESIUM OXIDE 400MG TABLET PO SCH (08:53)
[2023-09-14] MEDS: CALCIUM CARBONATE/VITAMIN D3 500MG TABLET PO SCH (08:53)
[2023-09-14] MEDS: CALCITONIN,SALMON, 3.7 ML NASAL SPRAY ONENSTRL SCH (08:54)
[2023-09-14] MEDS: APIXABAN 5 MG TABLET PO SCH (08:54)
[2023-09-14] MEDS: LIDOCAINE 5% PATCH TOP SCH (08:55)
[2023-09-14 18:28] LABS: CLARITY URINE CLOUDY (CLEAR); COLOR URINE YELLOW (YELLOW); GLUCOSE URINE NEGATIVE (NEGATIVE); KETONES URINE NEGATIVE (NEGATIVE); LEUKOCYTE ESTERASE URINE 2+ (NEGATIVE); NITRITE URINE NEGATIVE (NEGATIVE); OCCULT BLOOD URINE 2+ (NEGATIVE); PH URINE 5.5 (4.5-8.0); PROTEIN URINE TRACE (NEGATIVE); SPECIFIC GRAVITY URINE 1.022 (1.005-1.030); UROBILINOGEN URINE 0.2 E.U./dL (0.2-1.0)
[2023-09-14 18:43] LABS: WBC URINE 15-25 /hpf (0-2)
[2023-09-14 18:44] LABS: BACTERIA URINE 2+; SQUAMOUS EPITHELIAL CELL URINE 1+ /lpf (RARE/1+)
[2023-09-14 20:00] VITALS: BP 150/83; PULSE 81; RESP 18; TEMP 97
[2023-09-15 06:00] LABS: EOSINOPHILS % 0.4 % (0.0-5.0); HEMATOCRIT. 31.9 % (36.0-48.0); HEMOGLOBIN. 10.6 g/dL (12.0-16.0); MEAN CORPUSCULAR HEMOGLOBIN 31.3 pg (28.0-32.0); MEAN CORPUSCULAR HGB CONC 33.2 g/dL (31.0-37.0); MEAN CORPUSCULAR VOLUME 94.2 fL (81.0-99.0); MONOCYTES % 8.4 % (2.0-8.0); NEUTROPHILS % 58.2 % (40.0-76.0); PLATELET 200 x1000/uL (130-400); RED BLOOD CELL COUNT 3.38 mill/uL (4.2-5.4); RED CELL DISTRIBUTION WIDTH 14.2 % (11.6-14.6); WHITE BLOOD COUNT 3.1 x1000/uL (4.5-11.0)
[2023-09-15 06:04] LABS: CHLORIDE 104 mEq/L (98-107); POTASSIUM 3.8 mEq/L (3.5-5.1); SODIUM 138 mEq/L (136-145)
[2023-09-15 06:05] LABS: CALCIUM 9.5 mg/dL (8.7-10.4); CARBON DIOXIDE 29 mEq/L (21-32)
[2023-09-15 06:09] LABS: IRON 49 ug/dL (50-170)
[2023-09-15 06:10] LABS: CREATININE 0.6 mg/dL (0.6-1.0); GLUCOSE 82 mg/dL (70-105); UREA NITROGEN BLOOD 13 mg/dL (9-23)
[2023-09-15 06:12] LABS: ALANINE AMINOTRANSFERASE 10 IU/L (10-49); ALBUMIN 3.1 g/dL (3.2-4.8); ASPARTATE AMINOTRANSFERASE 11 IU/L (<34); BILIRUBIN TOTAL 0.4 mg/dL (0.1-1.0); PROTEIN TOTAL 5.2 g/dL (6.0-8.3); TOTAL IRON BINDING CAPACITY 221 ug/dl (250-425)
[2023-09-15 06:13] LABS: AMMONIA 25 uMol/L (<32)
[2023-09-15 06:14] LABS: THYROID STIMULATING HORMONE 5.13 uIU/mL (0.55-4.78)
[2023-09-15 06:21] LABS: FOLIC ACID (FOLATE) SERUM 10.49 ng/mL (>5.38)
[2023-09-15 06:22] LABS: FERRITIN 20 ng/mL (10-291); VITAMIN B12 SERUM 282 pg/mL (211-911)
[2023-09-15 08:00] VITALS: BP 125/65; PULSE 66; RESP 17; TEMP 98.7
[2023-09-15] MEDS: CYANOCOBALAMIN 1000MCG/ML VIAL IM SCH (11:28)
[2023-09-15 11:54] LABS: T4 FREE 0.89 ng/dL (0.89-1.76)
[2023-09-15 17:25] LABS: BASOPHILS % 0.6 % (0.0-2.0); EOSINOPHILS % 0.2 % (0.0-5.0); HEMATOCRIT. 32.5 % (36.0-48.0); HEMOGLOBIN. 10.7 g/dL (12.0-16.0); LYMPHOCYTES % 25.1 % (20.0-50.0); MEAN CORPUSCULAR HEMOGLOBIN 31.8 pg (28.0-32.0); MEAN CORPUSCULAR HGB CONC 32.8 g/dL (31.0-37.0); MEAN CORPUSCULAR VOLUME 96.8 fL (81.0-99.0); MEAN PLATELET VOLUME 7.6 fl (7.4-10.4); MONOCYTES % 8.8 % (2.0-8.0); NEUTROPHILS % 65.3 % (40.0-76.0); PLATELET 208 x1000/uL (130-400); RED BLOOD CELL COUNT 3.35 mill/uL (4.2-5.4); RED CELL DISTRIBUTION WIDTH 14.4 % (11.6-14.6); WHITE BLOOD COUNT 3.3 x1000/uL (4.5-11.0)
[2023-09-15 17:39] LABS: CHLORIDE 105 mEq/L (98-107); POTASSIUM 3.9 mEq/L (3.5-5.1); SODIUM 134 mEq/L (136-145)
[2023-09-15 17:40] LABS: CALCIUM 9.4 mg/dL (8.7-10.4); CARBON DIOXIDE 27 mEq/L (21-32)
[2023-09-15 17:45] LABS: CREATININE 0.7 mg/dL (0.6-1.0); GLUCOSE 124 mg/dL (70-105); UREA NITROGEN BLOOD 13 mg/dL (9-23)
[2023-09-15] MEDS: SUCRALFATE 1G TABLET PO SCH (17:45)
[2023-09-15] MEDS: FERROUS SULFATE 325MG TABLET PO SCH (17:45)
[2023-09-15 17:47] LABS: ALANINE AMINOTRANSFERASE 13 IU/L (10-49); ALBUMIN 3.3 g/dL (3.2-4.8); AMYLASE 161 IU/L (30-118); ASPARTATE AMINOTRANSFERASE 12 IU/L (<34)
[2023-09-15 17:48] LABS: BILIRUBIN TOTAL 0.4 mg/dL (0.1-1.0); PROTEIN TOTAL 5.6 g/dL (6.0-8.3)
[2023-09-15 20:00] VITALS: BP 139/62; PULSE 96; RESP 18; TEMP 98.1
[2023-09-16 03:11] LABS: CLARITY URINE CLOUDY (CLEAR); COLOR URINE YELLOW (YELLOW); GLUCOSE URINE NEGATIVE (NEGATIVE); KETONES URINE NEGATIVE (NEGATIVE); LEUKOCYTE ESTERASE URINE 2+ (NEGATIVE); NITRITE URINE NEGATIVE (NEGATIVE); OCCULT BLOOD URINE 1+ (NEGATIVE); PH URINE 5.5 (4.5-8.0); PROTEIN URINE NEGATIVE (NEGATIVE); SPECIFIC GRAVITY URINE 1.016 (1.005-1.030); UROBILINOGEN URINE 0.2 E.U./dL (0.2-1.0)
[2023-09-16 03:24] LABS: BACTERIA URINE TRACE; SQUAMOUS EPITHELIAL CELL URINE FEW /lpf (RARE/1+); WBC URINE 25-50 /hpf (0-2)
[2023-09-16] MEDS: LEVOTHYROXINE SODIUM 25MCG TABLET PO SCH (06:38)
[2023-09-16 08:00] VITALS: BP 124/66; PULSE 76; RESP 19; TEMP 97.8
[2023-09-16] MEDS: ASCORBIC ACID 500 MG TABLET PO SCH (08:44)
[2023-09-16] MEDS: MULTIVITAMINS,THER W-MINERALS TABLET PO SCH (08:44)
[2023-09-16] MEDS: FAMOTIDINE 20MG TABLET PO SCH (12:24)
[2023-09-16] MEDS: TRAMADOL 50MG TABLET PO SCH (16:09)
[2023-09-16 16:57] LABS: CHLORIDE 107 mEq/L (98-107); POTASSIUM 4.1 mEq/L (3.5-5.1); SODIUM 136 mEq/L (136-145)
[2023-09-16 16:58] LABS: CALCIUM 9.1 mg/dL (8.7-10.4); CARBON DIOXIDE 25 mEq/L (21-32)
[2023-09-16 17:03] LABS: CREATININE 0.7 mg/dL (0.6-1.0); GLUCOSE 209 mg/dL (70-105); UREA NITROGEN BLOOD 20 mg/dL (9-23)
[2023-09-16 17:05] LABS: PHOSPHORUS 2.8 mg/dL (2.5-4.9)
[2023-09-16 20:00] VITALS: BP 132/54; PULSE 77; RESP 19; TEMP 98.2
[2023-09-16 20:45] VITALS: BP 140/69; PULSE 77; RESP 18
[2023-09-16] MEDS: TRAMADOL 50MG TABLET PO NR (21:10)
[2023-09-16] MEDS: DEXTROSE 50% WATER 50ML SYRINGE IV PRN (21:10)
[2023-09-17 00:50] LABS: TROPONIN I HIGH SENSITIVITY < 4 ng/L (3.0-34)
[2023-09-17] MEDS: MAGNESIUM 2 G PREMIX 50 ML IV NR (01:27)
[2023-09-17 08:00] VITALS: BP 129/57; PULSE 71; RESP 17; TEMP 96.6
[2023-09-17] MEDS ORDERED: FLUCONAZOLE 50MG TABLET PO SCH (13:45)
[2023-09-17] MEDS: FLUCONAZOLE 100MG TABLET PO SCH (14:16)
[2023-09-17] MEDS ORDERED: DYZ PO (15:55)
[2023-09-17] MEDS ORDERED: FLUT1BLS3 IH (15:55)
[2023-09-17] MEDS ORDERED: INDO50CA99 PO (15:58)
[2023-09-17] MEDS ORDERED: DIPH50CA38 PO (15:58)
[2023-09-17 20:00] VITALS: BP 108/58; PULSE 85; RESP 20; TEMP 97.5
[2023-09-18 08:00] VITALS: BP 117/53; PULSE 64; RESP 17; TEMP 97.6
[2023-09-18] MEDS: FLUCONAZOLE 100MG TABLET PO SCH (08:32)
[2023-09-18 10:10] LABS: THYROID PEROXIDASE ANTIBODY 30 IU/mL (0-34)
[2023-09-18 20:00] VITALS: BP 113/54; PULSE 80; RESP 17; TEMP 99.5
[2023-09-19 08:00] VITALS: BP 132/67; PULSE 73; RESP 18; TEMP 97.1
[2023-09-19 14:08] LABS: A/G RATIO 1.2 (0.7-1.7); ALBUMIN 2.8 g/dL (2.9-4.4); ALPHA-1-GLOBULIN 0.2 g/dL (0.0-0.4); ALPHA-2-GLOBULIN 0.6 g/dL (0.4-1.0); BETA GLOBULIN 0.7 g/dL (0.7-1.3); GAMMA GLOBULINS 0.8 g/dL (0.4-1.8); GLOBULIN TOTAL 2.4 g/dL (2.2-3.9); M-SPIKE Not Observed g/dL (Not Observed); TOTAL PROTEIN SERUM 5.2 g/dL (6.0-8.5)
[2023-09-19 20:00] VITALS: BP 138/47; PULSE 76; RESP 17; TEMP 97.9
[2023-09-20 08:00] VITALS: BP 121/80; PULSE 76; RESP 17; TEMP 96.6
[2023-09-20] MEDS: GUAIFENESIN 200MG/10ML SUGAR FREE UDC PO PRN (16:42)
[2023-09-20 20:00] VITALS: BP 138/77; PULSE 77; RESP 20; TEMP 97.2
[2023-09-21 06:59] LABS: CARBON DIOXIDE 27 mEq/L (21-32); CHLORIDE 105 mEq/L (98-107); POTASSIUM 4.1 mEq/L (3.5-5.1); SODIUM 139 mEq/L (136-145)
[2023-09-21 07:00] LABS: CALCIUM 9.7 mg/dL (8.7-10.4)
[2023-09-21 07:03] LABS: CREATININE 0.7 mg/dL (0.6-1.0)
[2023-09-21 07:05] LABS: GLUCOSE 97 mg/dL (70-105); UREA NITROGEN BLOOD 17 mg/dL (9-23)
[2023-09-21 07:08] LABS: BASOPHILS % 1.2 % (0.0-2.0); EOSINOPHILS % 0.8 % (0.0-5.0); HEMATOCRIT. 32.7 % (36.0-48.0); LYMPHOCYTES % 30.6 % (20.0-50.0); MEAN CORPUSCULAR HEMOGLOBIN 32.1 pg (28.0-32.0); MEAN CORPUSCULAR HGB CONC 33.7 g/dL (31.0-37.0); MEAN CORPUSCULAR VOLUME 95.4 fL (81.0-99.0); MEAN PLATELET VOLUME 7.6 fl (7.4-10.4); MONOCYTES % 10.4 % (2.0-8.0); PLATELET 213 x1000/uL (130-400); RED BLOOD CELL COUNT 3.43 mill/uL (4.2-5.4); RED CELL DISTRIBUTION WIDTH 14.2 % (11.6-14.6); WHITE BLOOD COUNT 3.3 x1000/uL (4.5-11.0)
[2023-09-21 08:00] VITALS: BP 140/71; PULSE 70; RESP 19; TEMP 98
[2023-09-21 20:00] VITALS: BP 98/51; PULSE 103; RESP 19; TEMP 98.6
[2023-09-22 08:00] VITALS: BP 139/66; PULSE 73; RESP 17; TEMP 97.2
[2023-09-22 19:55] VITALS: BP 132/47; PULSE 74; RESP 18; TEMP 98.4
[2023-09-23 08:00] VITALS: BP 122/55; PULSE 67; RESP 20; TEMP 97.9
[2023-09-23 20:00] VITALS: BP 108/53; PULSE 102; RESP 18; TEMP 97.6
[2023-09-24 08:00] VITALS: BP 110/55; PULSE 70; RESP 18; TEMP 97.1
[2023-09-24 09:11] VITALS: BP 114/52
[2023-09-24] MEDS: FAMOTIDINE 20MG TABLET PO SCH (09:15)
[2023-09-24 20:00] VITALS: BP 116/56; PULSE 95; RESP 19; TEMP 99
[2023-09-25 08:00] VITALS: BP 173/71; PULSE 70; RESP 18; TEMP 98.4
[2023-09-25] MEDS: INVEGA SUSTENNA INJ SCH (14:49)
[2023-09-25 20:00] VITALS: BP 138/61; PULSE 76; RESP 19; TEMP 97.7
[2023-09-26 08:00] VITALS: BP 127/62; PULSE 72; RESP 18; TEMP 97.5
[2023-09-26 19:59] VITALS: BP 138/76; PULSE 75; RESP 20; TEMP 98.4
[2023-09-27 06:44] LABS: BASOPHILS % 1.4 % (0.0-2.0); EOSINOPHILS % 1.3 % (0.0-5.0); HEMATOCRIT. 33.6 % (36.0-48.0); HEMOGLOBIN. 11.3 g/dL (12.0-16.0); LYMPHOCYTES % 28.8 % (20.0-50.0); MEAN CORPUSCULAR HEMOGLOBIN 31.8 pg (28.0-32.0); MEAN CORPUSCULAR HGB CONC 33.6 g/dL (31.0-37.0); MEAN CORPUSCULAR VOLUME 94.6 fL (81.0-99.0); MEAN PLATELET VOLUME 7.6 fl (7.4-10.4); MONOCYTES % 9.5 % (2.0-8.0); PLATELET 216 x1000/uL (130-400); RED BLOOD CELL COUNT 3.55 mill/uL (4.2-5.4); RED CELL DISTRIBUTION WIDTH 14.4 % (11.6-14.6); WHITE BLOOD COUNT 3.6 x1000/uL (4.5-11.0)
[2023-09-27 06:45] LABS: INR 0.9; PROTHROMBIN TIME 10.6 sec (9.6-11.0)
[2023-09-27 07:08] LABS: CHLORIDE 108 mEq/L (98-107); POTASSIUM 4.5 mEq/L (3.5-5.1); SODIUM 139 mEq/L (136-145)
[2023-09-27 07:09] LABS: CARBON DIOXIDE 23 mEq/L (21-32)
[2023-09-27 07:10] LABS: CALCIUM 9.6 mg/dL (8.7-10.4)
[2023-09-27 07:14] LABS: CREATININE 0.7 mg/dL (0.6-1.0); GLUCOSE 85 mg/dL (70-105)
[2023-09-27 07:15] LABS: UREA NITROGEN BLOOD 22 mg/dL (9-23)
[2023-09-27 08:00] VITALS: BP 122/63; PULSE 83; RESP 17; TEMP 97.1
[2023-09-27 08:25] VITALS: RESP 18
[2023-09-27] MEDS ORDERED: SUCR1TAB30 MT (10:57)
[2023-09-27] MEDS ORDERED: FAMO-135 MT (10:57)
[2023-09-27 12:15] VITALS: BP 122/63; PULSE 83; TEMP 97.1; O2SAT 98
== END 2023-09-27 13:15 | disposition home health service (06) | DRG 542 ==
PROVIDERS: ADMIT Physical Medicine & Rehabilitation Spinal Cord Injury Medicine; ATTEND Internal Medicine
DX: M48.54XA Collapsed vertebra, not elsewhere classified, thoracic region, initial encounter for fracture (principal); G82.50 Quadriplegia, unspecified; L89.153 Pressure ulcer of sacral region, stage 3; I26.99 Other pulmonary embolism without acute cor pulmonale; Z68.1 Body mass index [BMI] 19.9 or less, adult; E66.9 Obesity, unspecified; F20.9 Schizophrenia, unspecified; J44.9 Chronic obstructive pulmonary disease, unspecified; K21.9 Gastro-esophageal reflux disease without esophagitis; D63.8 Anemia in other chronic diseases classified elsewhere; M48.061 Spinal stenosis, lumbar region without neurogenic claudication; Z93.3 Colostomy status; K62.3 Rectal prolapse; E53.8 Deficiency of other specified B group vitamins; E04.9 Nontoxic goiter, unspecified; M48.56XA Collapsed vertebra, not elsewhere classified, lumbar region, initial encounter for fracture; D72.819 Decreased white blood cell count, unspecified; E11.9 Type 2 diabetes mellitus without complications; E55.9 Vitamin D deficiency, unspecified; E61.1 Iron deficiency; E78.00 Pure hypercholesterolemia, unspecified; M47.816 Spondylosis without myelopathy or radiculopathy, lumbar region; N20.0 Calculus of kidney; N28.1 Cyst of kidney, acquired; R13.10 Dysphagia, unspecified; R53.83 Other fatigue; R26.2 Difficulty in walking, not elsewhere classified; R53.1 Weakness; R53.81 Other malaise; Z79.4 Long term (current) use of insulin; Z86.711 Personal history of pulmonary embolism; Z87.440 Personal history of urinary (tract) infections; Z90.710 Acquired absence of both cervix and uterus; Z91.81 History of falling
CPT/HCPCS: 36415; 80048; 80053; 81003; 82140; 82150; 82306; 82330; 82533; 82553; 82607; 82728; 82746; 82962; 83540; 83550; 83735; 83970; 84100; 84134; 84155; 84165; 84439; 84443; 84481; 84484; 85025; 86376; 87106; 92523; 92610; 93005; 97110; 97116; 97150; 97162; 97166; 97530; 97535; 97542; A6261; C1893; J1650; J1815; J3420; J3475